=== PATIENT | female | born 1985 | race Caucasian/White ===

== ENCOUNTER 2020-07-06 11:40 | Outpatient (CLI) | payer BC ==
--- NOTE | 2020-07-06 12:12 | ULT ---
Ultrasound of theabdomen: 07/06/2020 COMPARISON:None available HISTORY:Pain TECHNIQUE: Multiplanar grayscale sonographic imaging of theabdomen provided FINDINGS:The visualized pancreas appears unremarkable. The abdominal aorta and IVC appear grossly unr emarkable. No focal liver lesion or intrahepatic biliary dilatation is noted. The common bile duct measures 2-3 mm, within normal limits. No gallbladder wall thickening or pericholecystic fluid. No gallstones are noted. The right kidney measures approximately 11 cm in craniocaudal dimension and demonstrates no evidence for stone, hydronephrosis, or mass. The left kidney measures 10.4 cm in craniocaudal dimension and demonstrates no stone, hydronephrosis, or mass. The spleen measures 10.1 cm in greatest dimension. The playground aide reports a negative Aguilar's sign. IMPRESSION:No acute findings.
--- NOTE | 2020-07-06 12:13 | RAD ---
Chest 2 views: 07/06/2020 COMPARISON: 10/03/2011 HISTORY: Intermittent chest pain for 2 months FINDINGS: Heart and mediastinal contours appear grossly unremarkable. No pneumothorax or pleural fluid is seen. There is no focal consolidation or alveolar edema. IMPRESSION: No acute findings.
== END 2020-07-06 11:41 | disposition home or self-care (01) ==
LOC: BICULT 11:40
PROVIDERS: ATTEND Specialist
DX: R07.9 Chest pain, unspecified (principal)
CPT/HCPCS: 71046; 93975